=== PATIENT | female | born 1940 | race Caucasian/White ===

== ENCOUNTER → 2016-10-08 | Outpatient (CLI) | payer OTHER | LOC: FIMAGING 11:51 | DX: Z12.31 Encounter for screening mammogram for malignant neoplasm of breast (principal) | CPT/HCPCS: G0202 ==

== ENCOUNTER → 2017-03-18 | Outpatient (CLI) | payer OTHER | LOC: GIMAGING 08:26 | PROVIDERS: ATTEND Nurse Practitioner Family | DX: M25.532 Pain in left wrist (principal); R60.9 Edema, unspecified; M19.032 Primary osteoarthritis, left wrist | CPT/HCPCS: 73110-PO ==

== ENCOUNTER 2017-03-23 15:17 | Emergency (ER) | payer OTHER ==
[2017-03-23 15:30] VITALS: RESP 18
[2017-03-23] MEDS ORDERED: methylPREDNISolone SOD SUCC 125 MG/2 ML VIAL IVP ONE (15:42)
[2017-03-23] MEDS ORDERED: DIAZEPAM 10 MG/2 ML SYR IVP ONE (15:44)
--- NOTE | 2017-03-23 15:51 | CPEKG ---
Heart Rate: 68 RR Interval: 882 P-R Interval: 168 QRSD Interval: 86 QT Interval: 376 QTC Interval: 400 P Bud: 32 QRS Bud: 21 T Wave Bud: 40 EKG Severity - NORMAL ECG - EKG Impression: SINUS RHYTHM Electronically Signed By: Cuong Leal 23-Mar-2017 16:21:17
[2017-03-23 16:24] LABS: % IMMATURE GRANULYOCYTES 0.4 % (0.0-1.1); ABSOLUTE IMMATURE GRANULOCYTES 0.04 10^3/uL (0.00-0.10); ADD DIFF? NO; ADD MORPH? NO; ADD SCAN? NO; ATYPICAL LYMPHOCYTE FLAG 0 (0-99); FRAGMENT RBC FLAG 0 (0-99); HEMATOCRIT 37.4 % (38.0-47.0); HEMOGLOBIN 12.9 g/dL (12.6-16.3); LEFT SHIFT FLG 0 (0-99); LIPEMIA HEMOLYSIS FLAG 90 (0-99); MEAN CELL HEMOGLOBIN 30.9 pg (27.9-34.1); MEAN CELL HEMOGLOBIN CONCENTR. 34.5 g/dL (32.4-36.7); MEAN CELL VOLUME 89.7 fL (81.5-99.8); MEAN PLATELET VOLUME 9.5 fL (8.7-11.7); PLATELET CLUMPS FLAG 40 (0-99); PLATELET COUNT 246 10^3/uL (150-400); RED BLOOD CELL COUNT 4.17 10^6/uL (4.18-5.33); RED CELL DISTRIBUTION WIDTH 12.7 % (11.5-15.2)
--- NOTE | 2017-03-23 16:27 | EDPHY ---
H & P Smoking Status: Never smoked Time Seen by Provider: 03/23/17 16:23 HPI/ROS: HPI: MS. Redmond is a 76 yrs, female who presents with Chief Complaint: left arm pain Location: left arm Quality: sharp, aching Duration: 1-3 weeks Signs and Symptoms: no fever, no chest pain, no shortness of breath, + radiation from neck to left wrist, no numbness, no tingling, no nausea, no vomiting, + dysuria Timing: constant Severity: 05/21 Context: Complains of left arm sharp aching pain that starts at the base of her neck and radiates down to the left ulnar aspect of her wrist. Per patient, primary care provider ordered left wrist x-ray last week that showed mild arthritic changes. She has been placing topical NSAID patches on the areas with no relief. Within the last 5 days she was seen by physical therapy and had dry needling performed on her neck with instant relief for 1 day. Has not taken her Mobic in 3 days as she wanted to be able to take Aleve which her last dose was at 11 o'clock today. No prior cardiac history Modifying Factors: Mobic Comment: ROS: Eyes: No blurred vision Respiratory: No shortness of breath, no cough Cardiovascular: No chest pain Gastrointestinal: No nausea, no vomiting no diarrhea Genitourinary: No dysuria Extremities: No myalgias Neurologic: No weakness, no numbness Skin: No rashes Hematologic: No bruising, no bleeding (Annie Wolff) Past Medical/Surgical History: Osteoarthritis. Postmenopausal. (Annie Wolff) Social History: . Retired. (Annie Wolff) Physical Exam: CONSTITUTIONAL: Anxious elderly white female, accompanied by her , awake and alert, moderate distress HEENT: Atraumatic and normocephalic, PERRL, EOMI. Tympanic membranes clear. . Oropharynx clear, no exudate and moist pink mucosa. Airway patent. No lymphadenopathy. NECK: supple, FROM, non-tender. No meningismus. Cardiovascular: Normal S1/S2, regular rate, regular rhythm, without murmur rub or gallop. PULMONARY/CHEST: Symmetrical and nontender. Clear to auscultation bilaterally Good air movement. No accessory muscle usage. ABDOMEN: Soft, nondistended, nontender, no rebound, no guarding, no peritoneal signs, no masses or organomegaly. No CVAT. EXTREMITIES: 2/2 pulses, no deformities, no clubbing, no cyanosis or edema. Left shoulder mild AC joint tenderness; good range of motion Abduction/internal rotation/external rotation. Deltoid strength 5/5. Left and right elbow shows no tenderness at the epicondyles and full range of motion. Left wrist shows full flexion extension with mild tenderness on the ulnar aspect with mild swelling noted NEUROLOGICAL: no focal neuro deficits. GCS 15. SKIN: Warm and dry, no erythema. no rash. Good capillary refill. (Annie Wolff) Constitutional: Initial Vital Signs Temperature (C) 36.5 C 03/23/17 15:25 Heart Rate 81 03/23/17 15:25 Respiratory Rate 18 03/23/17 15:25 Blood Pressure 161/81 H 03/23/17 15:25 O2 Sat (%) 98 03/23/17 15:25 Allergies/Adverse Reactions: No Known Allergies Allergy (Verified 03/23/17 15:27) Home Medications: Medication Instructions Recorded Cefuroxime Axetil [Ceftin (*)] 250 mg PO BID #14 tab 03/23/17 Meloxicam [Mobic 7.5 mg] 7.5 mg PO 03/23/17 methylPREDNISolone [Medrol Dose 1 each PO AD #0 ea 03/23/17 Vito] traMADol [Ultram 50 mg (*)] 50 mg PO Q4 PRN #10 tab 03/23/17 Medical Decision Making - Diagnostics EKG Interpretation: 12 lead EKG: Indication: left arm pain Rhythm: Normal sinus rhythm [place]: Normal Intervals: Normal QRS: Normal ST segments: Normal INTERPRETATION: Normal EKG The 12 lead EKG was interpreted by myself. (Annie Wolff) Imaging Results: Imaging Impressions Cervical Spine X-Ray 03/23/17 15:42 Impression: Multilevel degenerative disk and degenerative joint disease in the cervical spine. Levels of more severe neural foraminal narrowing are at C4-C5 through C6-C7, as above. If there is further concern for radiculopathy, consider MRI for further evaluation. Chest X-Ray 03/23/17 15:52 Impression: No evidence for acute cardiopulmonary abnormality. ED Course/Re-evaluation: Chest x-ray, cervical x-ray, EKG, labs, IV medications suspect cervical radiculopathy Given IV Solmedrol and IV Valium with moderate relief Cervical xray shows moderate multilevel DDD. benefit MRI Cervical outpatient UA shows infection; send for urine cx; Rx Ceftin CXR read by Dr. Leal no pneumothorax/effusion (Annie Wolff) Differential Diagnosis: Chest pain including but not limited to myocardial ischemia, pulmonary embolus, chest wall pain, pleural inflammation and pulmonary infectious causes. (Annie Wolff) Other Provider: PHYSICIAN DOCUMENTATION: The patient was evaluated and managed by the Physician Waredresser. My co- signature indicates that I have reviewed this chart and I agree with the findings and plan of care as documented. I am the secondary supervising physician. (Cuong Leal) - Data Points Laboratory Results: Laboratory Results 03/23/17 15:54 03/23/17 15:54 03/23/17 03/23/17 03/23/17 16:38 15:54 15:54 WBC 10.68 10^3/uL H 10^3/uL (3.80-9.50) RBC 4.17 10^6/uL L 10^6/uL (4.18-5.33) Hgb 12.9 g/dL g/dL (12.6-16.3) Hct 37.4 % L % (38.0-47.0) MCV 89.7 fL fL (81.5-99.8) MCH 30.9 pg pg (27.9-34.1) MCHC 34.5 g/dL g/dL (32.4-36.7) RDW 12.7 % % (11.5-15.2) Plt Count 246 10^3/uL 10^3/uL (150-400) MPV 9.5 fL fL (8.7-11.7) Neut % (Auto) 84.2 % H % (39.3-74.2) Lymph % (Auto) 8.1 % L % (15.0-45.0) [place] % (Auto) 6.1 % % (4.5-13.0) Eos % (Auto) 0.7 % % (0.6-7.6) Baso % (Auto) 0.5 % % (0.3-1.7) Nucleat RBC Rel Count 0.0 % % (0.0-0.2) Absolute Neuts (auto) 9.00 10^3/uL H 10^3/uL (1.70-6.50) Absolute Lymphs (auto) 0.87 10^3/uL L 10^3/uL (1.00-3.00) Absolute Monos (auto) 0.65 10^3/uL 10^3/uL (0.30-0.80) Absolute Eos (auto) 0.07 10^3/uL 10^3/uL (0.03-0.40) Absolute Basos (auto) 0.05 10^3/uL 10^3/uL (0.02-0.10) Absolute Nucleated RBC 0.00 10^3/uL 10^3/uL (0-0.01) Immature Gran % 0.4 % % (0.0-1.1) Immature Gran # 0.04 10^3/uL 10^3/uL (0.00-0.10) Sodium 130 mEq/L L mEq/L (134-144) Potassium 5.0 mEq/L mEq/L (3.5-5.2) Chloride 95 mEq/L L mEq/L (97-110) Carbon Dioxide 21 mEq/l L mEq/l (22-31) Anion Gap 14 mEq/L mEq/L (8-16) BUN 27 mg/dL H mg/dL (7-23) Creatinine 0.8 mg/dL mg/dL (0.6-1.0) Estimated GFR > 60 Glucose 93 mg/dL mg/dL (70-100) Calcium 10.4 mg/dL mg/dL (8.5-10.4) Troponin I < 0.012 ng/mL ng/mL (0-0.034) Urine Color YELLOW Urine Appearance MODERATELY TURBID Urine pH 6.0 (5.0-7.5) Ur Specific [place] 1.012 (1.002-1.030) Urine Protein 1+ H (NEGATIVE) Urine Ketones 1+ H (NEGATIVE) Urine Blood 3+ H (NEGATIVE) Urine Nitrate POSITIVE H (NEGATIVE) Urine Bilirubin NEGATIVE (NEGATIVE) Urine Urobilinogen NEGATIVE EU EU (0.2-1.0) Ur Leukocyte Esterase 3+ H (NEGATIVE) Urine RBC 15-25 /hpf H /hpf (0-3) Urine WBC 50-182 /hpf H /hpf (0-3) Ur Epithelial Cells NONE SEEN /lpf /lpf (NONE-1+) Urine Bacteria 3+ /hpf H /hpf (NONE SEEN) Urine Glucose NEGATIVE (NEGATIVE) Medications Given: Discontinued Medications Diazepam (Valium Injection) 5 mg IVP EDNOW ONE Stop: 03/23/17 15:45 Last Admin: 03/23/17 15:56 Dose: 5 mg Methylprednisolone Sodium Succinate (Solu-Medrol) 125 mg IVP EDNOW ONE Stop: 03/23/17 15:43 Last Admin: 03/23/17 15:56 Dose: 125 mg Departure - Departure Disposition: Home, Routine, Self-Care Clinical Impression: Cervical radiculopathy, DDD (degenerative disc disease), cervical, Lower urinary tract infection Condition: Fair Instructions: Cervical Radiculopathy (ED), Degenerative Disc Disease (ED) Additional Instructions: Benefit from MRI cervical outpatient and +/- referral for Cervical MARK. Referrals: Eda Morgan MD [Primary Care Provider] - 2-3 days, call for appt. Prescriptions: Cefuroxime Axetil [Ceftin (*)] 250 mg PO BID #14 tab methylPREDNISolone [Medrol Dose Vito] 1 each PO AD #0 ea traMADol [Ultram 50 mg (*)] 50 mg PO Q4 PRN #10 tab PRN Reason: moderate pain
[2017-03-23 16:38] LABS: ANION GAP 14 mEq/L (8-16); CALCIUM 10.4 mg/dL (8.5-10.4); CARBON DIOXIDE 21 mEq/l (22-31); CHLORIDE 95 mEq/L (97-110); CREATININE 0.8 mg/dL (0.6-1.0); GLOMERULAR FILTRATION RATE > 60; GLUCOSE 93 mg/dL (70-100); SODIUM 130 mEq/L (134-144)
[2017-03-23 16:49] LABS: COLOR YELLOW; LEUKOCYTE ESTERASE,URINE 3+ (NEGATIVE); NITRITE,URINE POSITIVE (NEGATIVE)
[2017-03-23 16:49] LABS: TROPONIN I < 0.012 ng/mL (0-0.034)
[2017-03-23 16:58] LABS: BACTERIA 3+ /hpf (NONE SEEN); RBC,URINE 15-25 /hpf (0-3); WBC,URINE 50-182 /hpf (0-3)
[2017-03-23] MEDS ORDERED: CEPHALEXIN 500 MG CAP PO ONE (17:54)
[2017-03-23] MEDS ORDERED: traMADol 50 MG TAB PO ONE (17:56)
[2017-03-23 18:34] VITALS: O2SAT 95
[2017-03-23 18:36] VITALS: BP 156/88; PULSE 78; TEMP 97.9
== END 2017-03-23 18:35 | disposition home or self-care (01) ==
DX: M50.10 Cervical disc disorder with radiculopathy, unspecified cervical region (principal); N39.0 Urinary tract infection, site not specified; B96.20 Unspecified Escherichia coli [E. coli] as the cause of diseases classified elsewhere
CPT/HCPCS: 96374

== ENCOUNTER → 2017-05-10 | Outpatient (CLI) | payer OTHER | LOC: FIMAGING 13:34 | PROVIDERS: ATTEND Family Medicine | DX: M81.0 Age-related osteoporosis without current pathological fracture (principal); Z96.642 Presence of left artificial hip joint ==

== ENCOUNTER → 2017-10-24 | Outpatient (CLI) | payer OTHER | LOC: FIMAGING 11:53 | DX: Z12.31 Encounter for screening mammogram for malignant neoplasm of breast (principal) ==

== ENCOUNTER 2017-11-13 05:22 | Observation (INO) | payer OTHER ==
[2017-11-13] MEDS ORDERED: LIDOCAINE 1% 2 ML INJ ID PRN (05:39)
[2017-11-13] MEDS ORDERED: LR 1,000 ML IV ONE (05:39)
--- NOTE | 2017-11-13 06:11 | PDGENHP ---
History and Physical History and Physical: Assessment and Plan: 1. Cystocele, lateral Brianne has stage III pelvic organ prolapse predominantly involving her anterior and apical compartments. We reviewed all conservative and surgical options. She did not find the pessary helpful more comfortable. As result she is requesting surgical intervention. This will be a robotic assisted supracervical hysterectomy, BSO, sacral colpopexy, perineorrhaphy, mid urethral sling, and cystoscopy. She was given a sample of Estrace cream. I would like her to rub it into the vaginal epithelium twice per week until surgery. 2. Third degree uterine prolapse 3. Genuine stress incontinence, female Subjective: Patient ID: Brianne Redmond is a 77 y.o. female who presents to [facility] for prolapse. HPI Brianne Redmond presents for a preoperative visit. She is scheduled for a robotic supracervical hysterectomy, BSO, sacral colpopexy, perineorrhaphy, mid urethral sling, and cystoscopy. The risks, benefits, and alternatives were presented and informed consent was obtained. 40 minutes of this 40 minute appointment was spent counceling, reviewing the procedure in detail, and discussing the preoperative and postoperative instructions. Below is a copy of our prior visit note. Brianne is a 77-year-old para 2 woman who presents to discuss prolapse. Her regular awning finisher is Dr. Rivera. She has a multiyear history of prolapse and incontinence. This is worsened over the last several years. She has tried a pessary in the past which she did not find comfortable and also was not very effective. She has urinary frequency especially at night. She wakes up 3-8 times per night. She can have some urgency incontinence at night but not during the day. She wears a pad on a daily basis. She does have some stress incontinence which has actually improved as her prolapse has worsened. She finds intercourse somewhat uncomfortable. She feels as though there is a tennis ball falling out her vagina. Her urine stream has been intermittent. She has no problems with bowel movements. She saw Dr. Zonia Luevano last April who discussed performing an open abdominal colpopexy versus a vaginal repair. PastMedicalHistory Past Medical History: Diagnosis Date Arthritis Dry eyes Heart disease Mitral Valve Prolapse PastSurgicalHistory Past Surgical History: Procedure Laterality Date FACIAL COSMETIC SURGERY 2003 HIP SURGERY Left 2011 CURRENT MEDICATIONS: Current Outpatient Prescriptions Medication Sig CROMOLYN SODIUM (NASALCROM NA) by Nasal route as needed. DEXTRAN 70/HYPROMELLOSE (TEARS NATURALE OP) gabapentin (NEURONTIN) 300 mg capsule ketorolac (ACULAR LS) 0.4 % ophthalmic solution OLOPATADINE HCL (PATADAY OP) OMEPRAZOLE (PRILOSEC PO) Take by mouth as needed. propranolol (INDERAL) 20 mg tablet Take 20 mg by mouth as needed. SIMETHICONE (GAS-X PO) Take by mouth as needed. TOBRAmycin (TOBREX) 0.3 % ophthalmic solution for Ocular Infection. zoledronic dyap-usgcyfgb-dvfjp (RECLAST) 5 mg/100 mL premix Inject 5 mg into the vein one time. amoxicillin (AMOXIL) 500 mg capsule Take 500 mg by mouth as needed (Before dental appointments). calcium carbonate (OYSTER SHELL CALCIUM 500) 500 mg calcium (1,250 mg) tablet Take 1 tablet by mouth daily. GREEN TEA EXTRACT PO meloxicam (MOBIC) 15 mg tablet multivitamin (HEXAVITAMIN) per tablet Take 1 tablet by mouth daily. OMEGA-3/DHA/EPA/FISH OIL (OMEGA-3 PO) sulfacetaminde-prednisolone (BLEPHAMIDE S.O.P.) 10-0.2 % ophthalmic ointment Place 0.5 inches into both eyes as needed for Ocular Infection. No current facility-administered medications for this visit. ALLERGIES: Hydrocodone-acetaminophen I have reviewed, verified and agree with the past medical, surgical, , family, social and ROS history as documented by the RN today. Objective: Vital Signs: Visit Vitals BP 130/76 Pulse 59 Temp 36.9 C (98.4 F) (Temporal Artery) Resp 14 Ht 1.613 m (5' 3.5") Wt 71.3 kg (157 lb 3.2 oz) SpO2 95% BMI 27.41 kg/m Physical Exam Gen: This is an alert, well developed woman in no distress. Neuro: She moves all extremities. Psych: She is appropriate, oriented, with normal affect. Neck: No thyroid enlargement, adenopathy, or tenderness. Lungs: Clear to ascultation, no wheezes or rales. Heart: Regular rate and rhythm without obvious murmurs. Abdomen: Soft, non-tender, without guarding, rebound, or masses. Extremities: No edema or cyanosis. Pelvic: Normal external genitalia. Moderately gaping introitus, vagina without discharge, atrophic. Cervix without lesions or discharge. Uterus normal sized, mobile, non-tender. Adnexa non-tender without enlargement. A third-degree cystourethrocele, borderline third-degree uterine prolapse and an almost second- degree rectocele. The urethra is mobile with leakage when coughing while supporting the anterior vaginal wall. DATA: I have reviewed the pertinent medical records. TIME/COMMUNICATION: I personally spent a total of 50 minutes. Of that 40 minutes was counseling/ coordination of patient's care. See my note above for details. Alonso Lane MD Board Certified Female Pelvic Medicine and Reconstructive Surgery Director of Minimally Invasive Gynecologic Surgery, [facility] Surgeon in Minimally Invasive Gynecologic Surgery [facility] Surgeon in Robotic Surgery
[2017-11-13] MEDS ORDERED: ceFAZolin 2 GM/SWFI 2 GM/20 ML SYR IVP ONE (06:57)
[2017-11-13] MEDS ORDERED: PHENAZOPYRIDINE HCL 200 MG TAB PO ONE (06:57)
[2017-11-13] MEDS ORDERED: ACETAMINOPHEN 500 MG TAB PO ONE (06:57)
--- NOTE | 2017-11-13 07:04 | PDANEPAE ---
ANE History of Present Illness 77 yo female for hyst/sacral-colpopexy. ANE Past Medical History - Cardiovascular History Hx Hypertension: No Hx Arrhythmias: Yes Hx Chest Pain: No Hx Coronary Artery / Peripheral Vascular Disease: No Hx CHF / Valvular Disease: No Hx Palpitations: No Cardiovascular History Comment: MITRAL VALVE PROLAPSE. USES RX (propanolol) WHEN HEART RACES. USUALLY BP RUNS LOW - Pulmonary History Hx COPD: No Hx Asthma/Reactive Airway Disease: No Hx Recent Upper Respiratory Infection: No Hx Oxygen in Use at Home: No Hx Sleep Apnea: No Sleep Apnea Screening Result - Last Documented: Negative - Neurologic History Hx Cerebrovascular Accident: No Hx Seizures: No Hx Dementia: No - Endocrine History Hx Diabetes: No Hypothyroid: No Obesity: mild - Renal History Hx Renal Disorders: Yes Renal History Comment: UA INCONT. HX OF UTI'S LAST 05/2017 - Liver History Hx Hepatic Disorders: No - Neurological & Psychiatric Hx Hx Neurological and Psychiatric Disorders: Yes Neurological / Psychiatric History Comment: SITUATIONAL ANXIETY - Cancer History Hx Cancer: Yes Cancer History Comment: SKIN - Congenital Disorder History Hx Congenital Disorders: No - GI History GERD: mild Hx Gastrointestinal Disorders: No Gastrointestinal History Comment: Prilosec as needed, none recently - Other Health History Other Health History: INTERMITTENT POST NASAL DRIP. OSTEOPOROSIS. DDD/CDD. DYE EYES/USES EXTENDED WEAR CONTACTS - Chronic Pain History Chronic Pain: Yes (CERVICAL/EYES) - Surgical History Prior Surgeries: LT TOTAL HIP 2012. BREAST BX. BRONCHOSCOPY. FACE LIFT. REMVL UTERINE POLYP ANE Review of Systems Review of Systems: - Exercise capacity METS (RN): 4 METS - Systems EENMT: Reports: eye pain (R corneal abrasion/conjunctivitis), nose congestion ( post-nansal drip - chronic) Cardiac: Reports: no symptoms Respiratory: Reports: no symptoms Gastrointestinal: Reports: no symptoms ANE Patient History - Allergies Allergies/Adverse Reactions: No Known Allergies Allergy (Verified 03/23/17 15:27) - Home Medications Home Medications: Gabapentin [Neurontin 300 MG (*)] 600 mg PO DAILY PRN 10/21/17 [Last Taken 11/12 20:00] Herbals/Supplements -Info Only 1 ea PO DAILY 10/21/17 [Last Taken 11/06/17] Hypromellose/Pf [Retaine Hpmc 0.3% Eye Drops] 1 drop OP DAILY 10/21/17 [Last Taken 11/13/17 05:30] Meloxicam 15 mg PO DAILY PRN 10/21/17 [Last Taken 11/06/17] Mineral Oil/Petrolatum,White [Retaine Pm Eye Ointment] 1 chantell OP HS 10/21/17 [ Last Taken Unknown] Multivitamins [Multivitamin (*)] 1 each PO DAILY 10/21/17 [Last Taken 11/06/17] Nasacrom 1 spray EACHNARE DAILY PRN 10/21/17 [Last Taken 11/11/17 21:00] Olopatadine HCl [Pazeo] 1 drop OP BID PRN 10/21/17 [Last Taken Unknown] [place]-3 Fatty Acids [Fish Oil 1000 mg (*)] 2,000 mg PO BID 10/21/17 [Last Taken 11/06/17] Propranolol HCl 20 mg PO DAILY PRN 10/21/17 [Last Taken 11/12/17 21:30] Reclast Infusion 1 each IV .Q1YEAR 10/21/17 [Last Taken 11/06/17] Estrace Vaginal (*) EVERY OTHER DAY 10/22/17 [Last Taken 11/07/17] - NPO status NPO Since - Liquids (Date): 11/12/17 NPO Since - Liquids (Time): 22:00 NPO Since - Solids (Date): 11/12/17 NPO Since - Solids (Time): 21:00 - Anes Hx Anes Hx: post operative nausea and vomiting - Smoking Hx Smoking Status: Never smoked Marijuana use: No - Alcohol Use Alcohol Use: Rarely - Family Anes Hx Family Anes Hx: neg - N/A ANE Labs/Vital Signs - Vital Signs Blood Pressure: 144/56 Heart Rate: 52 Respiratory Rate: 18 O2 Sat (%): 95 Height: 161.29 cm Weight: 73.482 kg ANE Physical Exam - Airway Neck exam: FROM Mallampati Score: Class 2 - Pulmonary Pulmonary: clear to auscultation - Cardiovascular Cardiovascular: bradycardia - ASA Status ASA Status: III ANE Anesthesia Plan Anesthesia Plan: general endotracheal anesthesia
--- NOTE | 2017-11-13 07:13 | PDHPUP ---
History & Physical Update H&P update statement: This history and physical update is based on an assessment of the patient which was completed after admission or registration (within 24 hours), but prior to the surgery/procedure. H&P update: H&P reviewed & patient examined, no change in patient's condition since H&P completed
[2017-11-13] MEDS ORDERED: BUPIVACAINE/EPI 0.5% 30 ML SDV ONE (07:16)
[2017-11-13] MEDS ORDERED: ROCURONIUM 50 MG/5 ML VIAL ONE ×2 (07:19→08:34)
[2017-11-13] MEDS ORDERED: DEXAMETHASONE 4 MG/ML VIAL ONE (07:19)
[2017-11-13] MEDS ORDERED: PROPOFOL/EMULSION 500 MG/50 ML BOTTLE IV ONE (07:19)
[2017-11-13] MEDS ORDERED: fentaNYL 250 MCG/5 ML INJ ONE (07:19)
[2017-11-13] MEDS ORDERED: LIDOCAINE 2% 5 ML SDV ONE (07:19)
[2017-11-13] MEDS ORDERED: KETOROLAC 30 MG/1 ML SDV ONE (09:17)
[2017-11-13] MEDS ORDERED: ALBUTEROL 3 ML DEYVIAL IH PRN (09:26)
[2017-11-13] MEDS ORDERED: NALOXONE HCL 0.4 MG/ML INJ IVP PRN (09:26)
[2017-11-13] MEDS ORDERED: LR 500 ML IV PRN (09:26)
[2017-11-13] MEDS ORDERED: oxyCODONE IR 5 MG TAB PO PRN (09:26)
[2017-11-13] MEDS ORDERED: PROMETHAZINE HCL 25 MG/ML INJ IVP PRN ×2 (09:26→09:49)
[2017-11-13] MEDS ORDERED: fentaNYL 100 MCG/2 ML INJ IVP PRN (09:26)
[2017-11-13] MEDS ORDERED: DIAZEPAM 5 MG/ML 1 ML SYR IVP PRN (09:26)
[2017-11-13] MEDS ORDERED: GLYCOPYRROLATE 0.2 MG/1 ML VIAL ONE ×2 (09:30→09:36)
[2017-11-13] MEDS ORDERED: NEOSTIGMINE METHYLSULFATE 3 MG/3 ML SYR ONE (09:30)
[2017-11-13] MEDS ORDERED: PROPRANOLOL HCL 20 MG TAB PO PRN (09:47)
[2017-11-13] MEDS ORDERED: OLOPATADINE HCL EACHEYE PRN (09:47)
[2017-11-13] MEDS ORDERED: ONDANSETRON 4 MG/2 ML VIAL IVP PRN (09:49)
[2017-11-13] MEDS ORDERED: ONDANSETRON DISINTEGRATING 4 MG TAB PO PRN (09:49)
--- NOTE | 2017-11-13 09:54 | POSTOPPROG ---
Post Op Note Date of Operation: 11/13/17 Surgeon: Alonso Lane Strategy Specialist: Carmen Sanders Anesthesiologist: Sangita Dominguez Anesthesia: GET(General Endotracheal) Pre-op Diagnosis: uterovaginal prolapse, stress incontinence Post-op Diagnosis: same Procedure: robotic hyst, bso, sacrocolpopexy, TOT sling, cysto Findings: ureters function at end of case Inf/Abcess present in the surg proc area at time of surgery?: No EBL: Minimal Complications: none
--- NOTE | 2017-11-13 10:00 | POSTANESTH ---
Post Anesthetic Evaluation Cardiovascular Status: Normal, Stable Respiratory Status: Normal, Stable Level of Consciousness/Mental Status: Moderately Sleepy Pain Control: Adequate, Prn Tx Ordered Nausea/Vomiting Control: Adequate, Prn Tx Ordered Complications Possibly Related to Anesthesia: None Noted
[2017-11-13] MEDS ORDERED: HYDROCODONE/APAP 5/325 TAB ONE (10:38)
[2017-11-13] MEDS: HYDROCODONE/APAP 5/325 TAB PO PRN ×2 (10:39→20:08)
[2017-11-13] MEDS: LR 1,000 ML IV SCH ×2 (11:56→21:41)
[2017-11-13] MEDS: KETOROLAC 15 MG/1 ML SDV IVP SCH ×2 (11:59→17:33)
[2017-11-13] MEDS: HYDROmorphone HCL/NS 0.5 MG/ML SYR IVP PRN ×2 (12:01→15:18)
[2017-11-13] MEDS: MIN OIL EACHEYE PRN ×2 (15:07→21:40)
[2017-11-13] MEDS: SIMETHICONE 80 MG TAB CHEW PO SCH ×3 (15:07→21:41)
[2017-11-13] MEDS: LIGHT MINERAL OIL EACHEYE PRN ×2 (15:07→21:40)
[2017-11-13] MEDS: TOBRAMYCIN 0.3% 5 ML OPHT.BTL RTEYE SCH ×3 (15:25→21:39)
[2017-11-13] MEDS: GABAPENTIN 300 MG CAP PO SCH ×2 (17:33→21:41)
--- NOTE | 2017-11-13 17:39 | GOP ---
[f rep st] OPERATIVE REPORT DATE OF OPERATION: 11/13/2017 SURGEON: Alonso Lane MD PHOTOGRAPHY INSTRUCTOR: Carmen Sanders CFA. ANESTHESIA: General. PREOPERATIVE DIAGNOSIS: 1. Uterine prolapse. 2. Cystocele. 3. Rectocele. 4. Stress urinary incontinence. POSTOPERATIVE DIAGNOSIS: 1. Uterine prolapse. 2. Cystocele. 3. Rectocele. 4. Stress urinary incontinence. PROCEDURE PERFORMED: 1. Robotic-assisted laparoscopic hysterectomy, bilateral salpingo-oophorectomy. 2. Robotic-assisted laparoscopic sacrocervicopexy with mesh. 3. Repair of cystocele and rectocele. 4. Transobturator sling. 5. Cystoscopy. 6. Perineorrhaphy. FINDINGS: SPECIMENS: Uterus, bilateral tubes, and ovaries. ESTIMATED BLOOD LOSS: Scant. DESCRIPTION OF PROCEDURE: The patient was taken to the operating room, where she was identified. Ge neral anesthesia was administered and found to be adequate. She was placed in the lithotomy position and prepared and draped in the normal sterile fashion. A Sepulveda catheter was placed in her bladder. A 1 cm infraumbilical incision was made with a scalpel. The Veress needle with the CO2 gas flowing w as advanced into the peritoneal cavity. The abdomen was then insufflated with carbon dioxide gas. T he 12 mm trocar, followed by the laparoscope were then inserted. The upper abdomen was unremarkable. Two lateral ports were placed on either side under direct visualization. The patient was then plac ed in Trendelenburg position and the da Sincere robot docked on the left side. The instruments were th en brought into the abdominal cavity under direct visualization. The uterus, tubes, and ovaries were grossly unremarkable. There was no evidence of injury upon entering the abdomen. The left round li gament was divided. The anterior leaf of the broad ligament was incised to the bifurcation of the le ft common iliac vessels. A window was created posteriorly, anterior to the ureter which was easy to identify. The left infundibulopelvic vessels were then cauterized and transected. The anterior leaf of the broad ligament on the left was then incised over the left uterine vessels and across the cerv ix. The bladder was gently dissected off the cervix and upper vagina. The left uterine vasculature was then cauterized and transected. The exact same procedure was performed on the patient's right si de. The uterus was then bivalved to aid in removal through the umbilicus. The uterus and upper two- thirds of the cervix were amputated from the lower third of the cervix with the hot lisa. The spec imen was placed in the right upper quadrant for later removal. The Colpo-Probe was then placed in the vagina. The bladder was further dissected off the anterior va ginal wall down to the level of the bladder neck. The rectovaginal space was then entered and the re ctum dissected off the posterior vaginal wall down to the level of the perineal body. Measurements w ere then obtained and the mesh trimmed to size. The mesh was brought into the abdominal cavity. The posterior arm of the mesh was sutured down to th e perineal body with sutures of 4-0 [place]-Artur. Two additional rows of Rich[place]-Artur sutures were placed po steriorly. Three rows were placed anteriorly to suture the mesh down to the bladder neck and lateral ly to the paravaginal tissue. The sigmoid colon had been retracted laterally. The peritoneum over t he sacral promontory was incised and the fat pad gently dissected off the anterior longitudinal ligam ent. The sacral arm of the mesh was placed over the promontory and the tension adjusted. I then scrubbed back into the case to examine the vagina. The tension was further adjusted to resolve the cystocele and rectocele without undue tension on the vagina. Two sutures of 2-0 [place]-Artur were used to attach t he sacral arm of the mesh to the anterior longitudinal ligament at the level of the upper first verte bral body below the intervertebral disk space. The excess mesh was then trimmed. The peritoneum was then closed over the entire mesh. The robot was then undocked. The specimen removed through the [facility]. The fascia was closed with 0 Vicryl, the skin with 4-0 Monocryl and surgical adhesive. Attention was then turned to the sling portion of the procedure. A mid urethral incision was made wi th a scalpel. Tunnels were created bilaterally out to the obturator internus muscles. Skin incision s were made over the obturator notches. The Halo trocar was placed through the left skin incision, r edirected around the ischial pubic rami, and out through the vaginal incision using a vaginal finger as a guide. The lateral sulci were examined and no evidence of vaginal injury had occurred. The sli ng was then attached and brought out along the same course. The exact same procedure was performed o n the patient's right side. The sling was then adjusted to allow a small mid urethral gap. The vagi nal epithelium was closed with 2-0 Vicryl, skin with 4-0 Monocryl. Cystoscopy was then performed. Both ureters had vigorous jets of urine. There was no evidence of bl adder nor urethral injury seen. No mesh nor sutures were seen within the bladder nor urethra. No ob vious pathology was seen. Vaginal packing was then placed, anesthesia was reversed, and patient taken to the PACU awake, in sta ble condition. COMPLICATIONS: None. DISPOSITION: Patient stable to PACU. /[id number]/MODL
[2017-11-13] MEDS: DOCUSATE SODIUM 100 MG CAP PO SCH (20:07)
[2017-11-13] MEDS ORDERED: PETROLATUM WHITE EACHEYE SCH (21:00)
[2017-11-13] MEDS ORDERED: MINERAL OIL EACHEYE SCH (21:00)
[2017-11-14] MEDS: KETOROLAC 15 MG/1 ML SDV IVP SCH ×2 (00:21→05:45)
[2017-11-14] MEDS: HYDROCODONE/APAP 5/325 TAB PO PRN ×3 (00:22→11:54)
[2017-11-14] MEDS: TOBRAMYCIN 0.3% 5 ML OPHT.BTL RTEYE SCH ×2 (05:49→12:41)
[2017-11-14] MEDS: LR 1,000 ML IV SCH (06:47)
[2017-11-14 08:00] VITALS: BP 124/64; PULSE 56; RESP 18; TEMP 97.6; O2SAT 95
[2017-11-14] MEDS ORDERED: MIN OIL EACHEYE SCH (09:00)
[2017-11-14] MEDS ORDERED: LIGHT MINERAL OIL EACHEYE SCH (09:00)
[2017-11-14] MEDS ORDERED: HYPROMELLOSE EACHEYE SCH (09:00)
--- NOTE | 2017-11-14 09:28 | SOAPPROG ---
SOAP Progress Note Assessment/Plan: Assessment: Doing well, no issues. Plan: 11/14/17 09:27 Check voiding. Ambulate Home today is stable. f/u in 2 weeks. Instructions and precautions reviewed. Surgery explained. Subjective: No complaints. Pain controlled with p.o. Sepulveda and packing out. Feeling great. Objective: Vital Signs Temp Pulse Resp BP Pulse Ox 36.4 C 56 L 18 124/64 H 95 11/14/17 07:59 11/14/17 07:59 11/14/17 07:59 11/14/17 07:59 11/14/17 07:59 11/13/17 11/14/17 11/15/17 05:59 05:59 05:59 Intake Total 3772 Output Total 2250 250 Balance 1522 -250 - Pending Discharge Pending Discharge Within 24 Hours: Yes Pending Discharge Date: 11/15/17 Pending Discharge Time: 11:00 Physical Exam - Physical Exam General Appearance: WD/WN, alert, no apparent distress Respiratory: lungs clear, normal breath sounds Cardiac/Chest: regular rate, rhythm Abdomen: normal bowel sounds, non-tender, soft, other (Incisions clean, dry, and intact) Skin: normal color, warm/dry Neuro/Psych: no motor/sensory deficits, alert, normal mood/affect ICD10 Worksheet Patient Problems: Problems Problem Status Onset Cystocele, lateral Acute Genuine stress incontinence, female Acute Second degree uterine prolapse Acute
[2017-11-14] MEDS: SIMETHICONE 80 MG TAB CHEW PO SCH ×2 (09:53→12:44)
[2017-11-14] MEDS: DOCUSATE SODIUM 100 MG CAP PO SCH (09:53)
[2017-11-14] MEDS: GABAPENTIN 300 MG CAP PO SCH (09:53)
--- NOTE | 2017-11-14 10:57 | GDS ---
[f rep st] DISCHARGE SUMMARY DISCHARGE DIAGNOSIS: 1. Uterovaginal prolapse. 2. Stress urinary incontinence. PROCEDURES: 1. Robotic-assisted laparoscopic hysterectomy, bilateral salpingo-oophorectomy. 2. Sacral colpopexy with mesh. 3. Repair of cystocele and rectocele. 4. Transobturator sling. 5. Cystoscopy. HISTORY: Brianne suffered from uterovaginal prolapse and incontinence. She was taken to the operating room on 11/13/2017 where she underwent the above-mentioned procedures. She tolerated them well witho ut complications. HOSPITAL COURSE: Her postoperative course was uneventful. The morning after surgery she was ambulat ing, voiding, and tolerating a general diet. She had no complaints. She was discharged home on post operative day #1 in good condition. Medications included [place] and Aleve for pain. Postoperative in structions and precautions were reviewed. She was to follow up in the office 2 weeks after discharge or call for any questions or concerns. /[id number]/MODL
== END 2017-11-14 15:00 | disposition home or self-care (01) ==
LOC: F3E 05:22 → F1N 08:35
PROVIDERS: ADMIT Obstetrics & Gynecology; ATTEND Obstetrics & Gynecology
PROC: 0WQNXZZ Repair Female Perineum, External Approach (ICD-10-PCS; principal; 2017-11-13 07:15)
PROC: 0UTC4ZZ Resection of Cervix, Percutaneous Endoscopic Approach (ICD-10-PCS; principal; 2017-11-13 07:15)
PROC: 0TJ98ZZ Inspection of Ureter, Via Natural or Artificial Opening Endoscopic (ICD-10-PCS; principal; 2017-11-13 07:15)
PROC: 0USG4ZZ Reposition Vagina, Percutaneous Endoscopic Approach (ICD-10-PCS; principal; 2017-11-13 07:15)
PROC: 0TSC0ZZ Reposition Bladder Neck, Open Approach (ICD-10-PCS; principal; 2017-11-13 07:15)
PROC: 0UT74ZZ Resection of Bilateral Fallopian Tubes, Percutaneous Endoscopic Approach (ICD-10-PCS; principal; 2017-11-13 07:15)
PROC: 0UNG4ZZ Release Vagina, Percutaneous Endoscopic Approach (ICD-10-PCS; principal; 2017-11-13 07:15)
PROC: 0UT94ZZ Resection of Uterus, Percutaneous Endoscopic Approach (ICD-10-PCS; principal; 2017-11-13 07:15)
PROC: 0UT04ZZ Resection of Right Ovary, Percutaneous Endoscopic Approach (ICD-10-PCS; principal; 2017-11-13 07:15)
DX: N81.3 Complete uterovaginal prolapse (principal); N39.3 Stress incontinence (female) (male)
CPT/HCPCS: 56810; 57288; 57423; 57425; 58571; C1763; C1771; J0690; J1100; J1170; J1885; J2550; J2704; J2710; J3010

== ENCOUNTER 2018-09-22 12:47 | Emergency (ER) | payer OTHER ==
--- NOTE | 2018-09-22 13:07 | EDPHY ---
H & P Stated Complaint: CP Time Seen by Provider: 09/22/18 13:06 HPI/ROS: CHIEF COMPLAINT: Chest pain HISTORY OF PRESENT ILLNESS: The patient presents the emergency department with several days of intermittent chest pain. The patient reports that the chest pain is occurring more frequently. She reports that it is worsened when she is upright. It is not pleuritic. It is not precipitated by exertion. She denies associated cough, fever or congestion. She denies asymmetric calf pain or swelling. The patient reports it is underneath of her left breast. The patient denies history of coronary artery disease. She does have a history of hypertension and mitral valve prolapse. REVIEW OF SYSTEMS: A comprehensive 10 point review of systems is otherwise negative aside from elements mentioned in the history of present illness. Source: Patient Exam Limitations: No limitations - Personal History Tetanus Vaccine Date: WITHIN THE LAST 10 YEARS - Medical/Surgical History Hx Asthma: No Hx Chronic Respiratory Disease: No Hx Diabetes: No Hx Cardiac Disease: No Hx Renal Disease: No Hx Cirrhosis: No Hx Alcoholism: No Hx HIV/AIDS: No Hx Splenectomy or Spleen Trauma: No Other PMH: mitral valve Prolapse, hip surgery,. arthritis, bilateral corneal abrasions - Social History Smoking Status: Never smoked - Physical Exam Exam: General Appearance: Alert, no distress Eyes: Pupils equal and round no pallor or injection ENT, Mouth: Mucous membranes moist Respiratory: There are no retractions, lungs are clear to auscultation Cardiovascular: Regular rate and rhythm Gastrointestinal: Abdomen is soft and nontender, no masses, bowel sounds normal Neurological: A&O, normal motor function, normal sensory exam, normal cranial nerves Skin: Warm and dry, no rashes Musculoskeletal: Neck is supple nontender Extremities: symmetrical, full range of motion Psychiatric: Patient is oriented X 3, there is no agitation Constitutional: Initial Vital Signs Temperature (C) 36.3 C 09/22/18 12:48 Heart Rate 74 09/22/18 12:48 Respiratory Rate 16 09/22/18 12:48 Blood Pressure 200/94 H 09/22/18 12:48 O2 Sat (%) 99 09/22/18 12:48 O2 Delivery Mode Room Air Allergies/Adverse Reactions: No Known Allergies Allergy (Verified 09/22/18 12:47) Home Medications: Medication Instructions Recorded Gabapentin [Neurontin 300 MG (*)] 600 mg PO DAILY PRN 10/21/17 Herbals/Supplements -Info Only 1 ea PO DAILY 10/21/17 Meloxicam 15 mg PO DAILY PRN 10/21/17 Mineral Oil/Petrolatum,White 1 chantell OP HS 10/21/17 [Retaine Pm Eye Ointment] Multivitamins [Multivitamin (*)] 1 each PO DAILY 10/21/17 Nasacrom 1 spray EACHNARE DAILY PRN 10/21/17 Olopatadine HCl [Pazeo] 1 drop OP BID PRN 10/21/17 [place]-3 Fatty Acids [Fish Oil 1000 2,000 mg PO BID 10/21/17 mg (*)] Propranolol HCl 20 mg PO DAILY PRN 10/21/17 Reclast Infusion 1 each IV .Q1YEAR 10/21/17 Estradiol [Estrace Vaginal (*)] 1 chantell VG Q3D@21 10/22/17 Acetaminophen [Tylenol 325mg (*)] 325 - 650 mg PO Q6 PRN 11/13/17 Hydrocodone/APAP 5/325 [[place] 1 - 2 tab PO Q4HRS PRN #30 tab 11/13/17 5/325 (*)] Light Mineral Oil/Min Oil/Pf 1 each EACHEYE PRN PRN 11/13/17 [Retaine Mgd Eye Drops] Tobramycin 0.3% [Tobrex 0.3% opht 1 drop RTEYE QID 11/13/17 drops (*)] Medical Decision Making - Diagnostics EKG Interpretation: EKG: Complete interpretation has been separately recorded in the [email or web address] archive. Summary impression: Sinus rhythm, rate 65 Imaging Results: Imaging Impressions Chest X-Ray 09/22/18 12:55 Impression: Lateral left basilar linear subsegmental atelectasis versus scar. ED Course/Re-evaluation: The patient presents to the ED with several days of chest pain. The patient denies any history of exertional chest pain. She has no risk factors for coronary artery disease aside from hypertension. The patient denies any symptoms of pleuritic chest pain and has no symptoms suggestive of DVT on exam. Workup in the emergency department demonstrates some left-sided atelectasis. Patient's chest x-ray otherwise is unremarkable. The patient has no clinical evidence of shingles. The patient's EKG demonstrates no evidence of ischemia. Despite several days of symptoms her troponin is negative. This point time the etiology of her chest pain is uncertain however I have a low suspicion that this represents acute coronary syndrome. I am going to advise the patient to begin taking nonsteroidal anti- inflammatories. Patient is scheduled to follow up with her client server programmer Dr. Domingo Palomino in the coming week. Re-evaluated the patient at 2:20 p.m.. She is chest pain-free. The patient has been advised that her workup appears unrevealing. She does understand that we cannot fully exclude the possibility of occult coronary artery disease. At this point time I do feel she can be discharged home. Differential Diagnosis: Differential diagnosis considered includes acute coronary syndrome, pericarditis , myocarditis, pneumonia, pneumothorax - Data Points Laboratory Results: Laboratory Results 09/22/18 13:10 09/22/18 13:10 09/22/18 09/22/18 09/22/18 13:15 13:10 13:10 WBC 6.12 10^3/uL 10^3/uL (3.80-9.50) RBC 4.52 10^6/uL 10^6/uL (4.18-5.33) Hgb 13.9 g/dL g/dL (12.6-16.3) Hct 42.6 % % (38.0-47.0) MCV 94.2 fL fL (81.5-99.8) MCH 30.8 pg pg (27.9-34.1) MCHC 32.6 g/dL g/dL (32.4-36.7) RDW 13.2 % % (11.5-15.2) Plt Count 303 10^3/uL 10^3/uL (150-400) MPV 9.1 fL fL (8.7-11.7) Neut % (Auto) 68.5 % % (39.3-74.2) Lymph % (Auto) 19.1 % % (15.0-45.0) [place] % (Auto) 8.2 % % (4.5-13.0) Eos % (Auto) 3.1 % % (0.6-7.6) Baso % (Auto) 0.8 % % (0.3-1.7) Nucleat RBC Rel Count 0.0 % % (0.0-0.2) Absolute Neuts (auto) 4.19 10^3/uL 10^3/uL (1.70-6.50) Absolute Lymphs (auto) 1.17 10^3/uL 10^3/uL (1.00-3.00) Absolute Monos (auto) 0.50 10^3/uL 10^3/uL (0.30-0.80) Absolute Eos (auto) 0.19 10^3/uL 10^3/uL (0.03-0.40) Absolute Basos (auto) 0.05 10^3/uL 10^3/uL (0.02-0.10) Absolute Nucleated RBC 0.00 10^3/uL 10^3/uL (0-0.01) Immature Gran % 0.3 % % (0.0-1.1) Immature Gran # 0.02 10^3/uL 10^3/uL (0.00-0.10) Sodium 140 mEq/L mEq/L (135-145) Potassium 4.6 mEq/L mEq/L (3.5-5.2) Chloride 107 mEq/L mEq/L (97-110) Carbon Dioxide 25 mEq/l mEq/l (22-31) Anion Gap 8 mEq/L mEq/L (6-14) BUN 23 mg/dL mg/dL (7-23) Creatinine 0.9 mg/dL mg/dL (0.6-1.0) Estimated GFR > 60 Glucose 90 mg/dL mg/dL (70-100) Calcium 10.3 mg/dL mg/dL (8.5-10.4) POC Troponin I 0.00 ng/mL ng/mL (0.00-0.08) Point of Care Test Results: Chemistry 09/22/18 13:15 POC Troponin I 0.00 ng/mL ng/mL (0.00-0.08) Departure - Departure Disposition: Home, Routine, Self-Care Clinical Impression: Chest pain Condition: Good Instructions: Chest Pain (ED) Additional Instructions: 1. Based upon the testing done in the Emergency Department today we see no evidence of a heart attack. 2. We are unable to fully exclude coronary artery disease based upon the testing available in the Emergency Department. 3. For this reason, we would like you to be seen by cardiology for consideration of additional testing within the next 3 days. 4. Please contact the client server programmer you have been referred to schedule this appointment as soon as possible. Their offices are typically open from 8:30am- 5pm M-F. 5. Please return to the Emergency Department immediately for any recurrent chest pain, difficulty breathing or other concerns. Referrals: Domingo Palomino MD [Medical Doctor] - As per Instructions
[2018-09-22 13:30] LABS: PLATELET COUNT 303 10^3/uL (150-400)
[2018-09-22 14:41] VITALS: BP 130/71
--- NOTE | 2018-09-22 14:56 | CPEKG ---
Test Reason : OPEN Blood Pressure : / mmHG Vent. Rate : 065 BPM Atrial Rate : 065 BPM P-R Int : 176 ms QRS Dur : 085 ms QT Int : 412 ms P-R-T Axes : 066 012 037 degrees QTc Int : 429 ms Sinus rhythm Confirmed by Cuong Leal ([id number]) on 09/22/2018 2:56:12 PM Referred By: PHYSICIAN ED Confirmed By:Cuong Leal
== END 2018-09-22 14:40 | disposition home or self-care (01) ==
DX: R07.9 Chest pain, unspecified (principal); I34.1 Nonrheumatic mitral (valve) prolapse; I10 Essential (primary) hypertension
CPT/HCPCS: 84484-ER